=== PATIENT | male | born 1980 | race Caucasian/White ===

== ENCOUNTER → 2016-05-28 | Outpatient (CLI) | payer MEDICAID ==
[~2016-05-28] MED LIST: MELA5TAB PO; ONDA4TAB13 SL; zquil PO
== END | disposition home or self-care (01) ==
LOC: PETCFH 11:03
PROVIDERS: ATTEND Internal Medicine Nephrology
DX: E21.0 Primary hyperparathyroidism (principal); N18.9 Chronic kidney disease, unspecified; N20.0 Calculus of kidney; R31.9 Hematuria, unspecified
CPT/HCPCS: 78070; A9500

== ENCOUNTER 2016-05-30 07:37 | Day surgery (SDC) | payer MEDICAID ==
[~2016-05-30] VITALS: Ht 165.1 cm; Wt 57.0 kg
[2016-05-30] MEDS ORDERED: SODIUM CHLORIDE 0.9% 1,000 ML IV SCH (08:10)
[2016-05-30 08:13] VITALS: BP 125/61
[2016-05-30] MEDS ORDERED: zquil PO (08:13)
[2016-05-30] MEDS ORDERED: ONDA4TAB13 SL (08:13)
[2016-05-30] MEDS ORDERED: MELA5TAB PO (08:13)
[2016-05-30] MEDS ORDERED: PLEASE ENTER HEIGHT AND WEIGHT MC SCH (08:30)
[2016-05-30] MEDS ORDERED: NALOXONE 1 MG/ML, 2ML ONE (09:02)
[2016-05-30] MEDS ORDERED: MIDAZOLAM 1 MG/ML, 5ML ONE (09:02)
[2016-05-30] MEDS ORDERED: FENTANYL PF 100 MCG/2ML ONE (09:02)
== END 2016-05-30 10:55 | disposition home or self-care (01) ==
LOC: OUT 07:37
PROVIDERS: ATTEND Internal Medicine Nephrology
DX: I12.9 Hypertensive chronic kidney disease with stage 1 through stage 4 chronic kidney disease, or unspecified chronic kidney disease (principal); N18.1 Chronic kidney disease, stage 1; F17.210 Nicotine dependence, cigarettes, uncomplicated; F12.10 Cannabis abuse, uncomplicated; Z87.442 Personal history of urinary calculi; E78.5 Hyperlipidemia, unspecified; E55.9 Vitamin D deficiency, unspecified; E87.2 Acidosis; E21.0 Primary hyperparathyroidism; Z79.01 Long term (current) use of anticoagulants
CPT/HCPCS: 36415; 50200; 77012; 85610; 88300; J2250; J3010; J7030; 99156; 99157; J2310